=== PATIENT | male | born 1990 | race African-American/Black ===

== ENCOUNTER 2019-08-02 14:35 | Emergency (ER) | payer OTHER ==
[~2019-08-02] VITALS: Ht 193 cm; Wt 79.4 kg
[~2019-08-02 14:35] MED LIST: ZPAK PO
[2019-08-02 14:40] VITALS: BP 121/78
== END 2019-08-02 15:53 | disposition home or self-care (01) ==
LOC: ER 14:35
DX: S41.011A Laceration without foreign body of right shoulder, initial encounter (principal); W25.XXXA Contact with sharp glass, initial encounter; Y93.89 Activity, other specified; Y92.89 Other specified places as the place of occurrence of the external cause; Y99.8 Other external cause status